=== PATIENT | male | born 1970 | race Caucasian/White ===

== ENCOUNTER 2018-09-29 05:44 | Inpatient (IN) ==
[2018-09-29] MEDS ORDERED: cefTRIAXone 1,000 MG in SYRINGE 1 EACH IV ONE (06:00)
[2018-09-29] MEDS ORDERED: DIAZEPAM 5 MG TABLET PO ONE (06:21)
[2018-09-29] MEDS ORDERED: FAMOTIDINE 20 MG TABLET PO ONE (06:21)
[2018-09-29] MEDS ORDERED: LACTATED RINGERS 1,000 ML IV SCH (06:30)
[2018-09-29] MEDS ORDERED: DIAZEPAM 5 MG TABLET ONE (06:31)
[2018-09-29] MEDS ORDERED: FAMOTIDINE 20 MG TABLET ONE (06:31)
[2018-09-29] MEDS ORDERED: cefTRIAXone 1,000 MG VIAL ONE (06:31)
[2018-09-29] MEDS ORDERED: ALVIMOPAN 12 MG CAPSULE ONE (06:31)
[2018-09-29] MEDS: ALVIMOPAN 12 MG CAPSULE PO SCH ×2 (06:33→21:04)
[2018-09-29] MEDS ORDERED: LIDOCAINE 2% TOP JELLY 20 ML VIAL INTRAURETH ONE (07:21)
[2018-09-29] MEDS ORDERED: ROPIVACAINE 0.5% 30 ML VIAL ONE (09:17)
[2018-09-29] MEDS ORDERED: HYDROmorphone PCA 30 MG/30 ML SYRINGE IV ONE (10:04)
[2018-09-29 10:13] LABS: Apearance,Urine CLEAR (Clear); Bilirubin,Urine Negative (Negative); Blood, Urine Large mg/dL (Negative); Glucose,Urine (UA) 50 mg/dL (Negative); Ketones,Urine Negative (Negative); Nitrite,Urine Negative (Negative); Protein,Urine Negative; Urine Color Yellow (Yellow); Urine Specific Gravity 1.017 (1.001-1.035); Urine Urobilinogen < 2.0 EU/DL (0.2-1.0)
[2018-09-29 10:21] LABS: RBC,Urine Occasional /HPF (0-4); Squamous Epithelial Cell,Urine Rare /HPF (0-10)
[2018-09-29 10:22] LABS: Mucus,Urine Trace /LPF (Occasional)
[2018-09-29] MEDS ORDERED: SEVOFLURANE 1 UNIT/15 MINUTE INH ONE (10:22)
[2018-09-29] MEDS ORDERED: MIDAZOLAM 2 MG/2 ML VIAL ONE (10:22)
[2018-09-29] MEDS ORDERED: PROPOFOL 200 MG/20 ML VIAL IV ONE (10:22)
[2018-09-29] MEDS ORDERED: ePHEDrine 50 MG/ML AMP ONE (10:23)
[2018-09-29] MEDS ORDERED: fentaNYL 100 MCG/2 ML VIAL ONE (10:23)
[2018-09-29] MEDS ORDERED: NALOXONE 0.4 MG/ML VIAL IV PRN (10:23)
[2018-09-29] MEDS ORDERED: DEXAMETHASONE 4 MG/1 ML VIAL ONE (10:23)
[2018-09-29] MEDS ORDERED: ONDANSETRON 4 MG/2 ML VIAL ONE (10:23)
[2018-09-29] MEDS ORDERED: GLYCOPYRROLATE 0.4 MG/2 ML VIAL ONE (10:24)
[2018-09-29] MEDS ORDERED: PHENYLEPHRINE 1 MG/10 ML SYRINGE IV ONE (10:24)
[2018-09-29] MEDS ORDERED: ROCURONIUM 100 MG/10 ML VIAL IV ONE (10:24)
[2018-09-29] MEDS ORDERED: NEOSTIGMINE 10 MG/10 ML VIAL ONE (10:24)
[2018-09-29] MEDS ORDERED: SUCCINYLCHOLINE 200 MG/10 ML VIAL ONE (10:24)
[2018-09-29] MEDS ORDERED: ONDANSETRON 4 MG/2 ML VIAL IV PRN (10:24)
[2018-09-29] MEDS ORDERED: LACTATED RINGERS 2,000 ML IV ONE (10:24)
[2018-09-29] MEDS ORDERED: HYDROmorphone PCA 30 MG/30 ML SYRINGE IV SCH (10:30)
[2018-09-29] MEDS: HYDROmorphone 2 MG/1 ML VIAL IV PRN ×2 (10:46→10:48)
[2018-09-29] MEDS: SODIUM CHLORIDE 0.9% 1,000 ML IV SCH ×2 (14:33→21:05)
[2018-09-29] MEDS: INSULIN LISPRO 100 UNIT/ML SUBCUT SCH ×2 (16:51→21:04)
[2018-09-29] MEDS: metFORMIN 500 MG TABLET PO SCH (16:52)
[2018-09-29] MEDS: GEMFIBROZIL 600 MG TABLET PO SCH (21:04)
[2018-09-30 04:48] LABS: Basophils % 0.3 % (0.0-0.8); Hematocrit 35.6 VOL% (42.0-52.0); Hemoglobin 10.6 GM/DL (14.0-18.0); Immature Granulocytes % 0.7 %; Lymphocytes # 1.4 10*3/uL (1.4-4.0); Lymphocytes % 9.9 % (21.2-54.2); Mean Corpuscular HGB Conc 29.8 GM/DL (32-36); Mean Corpuscular Volume 94.2 FL (87-102); Mean Platelet Volume 10.8 FL (9.6-12.0); Monocytes % 11.9 % (1.7-12.7); Neutrophils % 77.2 % (38.7-73.9); Platelet Count 276 T/CUMM (130-400); Red Blood Count 3.78 MC/CUMM (3.8-5.5); Red Cell Distribution Width 13.5 % (9.3-17.3); White Blood Count 14.2 T/CUMM (4-12)
[2018-09-30 04:58] LABS: Calcium 8.2 MG/DL (8.5-10.1); Osmolality,Calculated 283.5 MOS/KG (273-304)
[2018-09-30] MEDS: LEVOTHYROXINE 200 MCG TABLET PO SCH (06:26)
[2018-09-30] MEDS: SODIUM CHLORIDE 0.9% 1,000 ML IV SCH (06:28)
[2018-09-30 06:58] LABS: Band Neutrophils 1 % (0-10); Lymphocytes 15 % (20-55); Segmented Neutrophils 79 % (50-85); Total Cells Counted 100
[2018-09-30 06:59] LABS: Hypochromasia 1+; Microcytosis 1+; Platelet Estimate Normal
[2018-09-30] MEDS ORDERED: oxyCODONE/ACETAMINOPHEN 5-325 MG TABLET PO PRN (08:13)
[2018-09-30] MEDS: metFORMIN 500 MG TABLET PO SCH ×2 (09:17→16:36)
[2018-09-30] MEDS: ALVIMOPAN 12 MG CAPSULE PO SCH ×4 (09:17→22:16)
[2018-09-30] MEDS: PARoxetine 20 MG TABLET PO SCH (09:17)
[2018-09-30] MEDS: LISINOPRIL 20 MG TABLET PO SCH (09:17)
[2018-09-30] MEDS: GEMFIBROZIL 600 MG TABLET PO SCH ×2 (09:17→22:16)
[2018-09-30] MEDS: oxyCODONE/ACETAMINOPHEN 5-325 MG TABLET PO PRN ×2 (09:18→14:20)
[2018-09-30] MEDS: INSULIN LISPRO 100 UNIT/ML SUBCUT SCH ×4 (09:19→22:16)
[2018-09-30] MEDS ORDERED: MAGNESIUM HYDROXIDE SUSP 30 ML UDCUP PO PRN (18:26)
[2018-09-30] MEDS ORDERED: DEXTROSE 50% 25 GM/50 ML VIAL IV PRN (19:00)
[2018-09-30] MEDS ORDERED: GLUCAGON 1 MG VIAL IM PRN (19:00)
[2018-10-01] MEDS: oxyCODONE/ACETAMINOPHEN 5-325 MG TABLET PO PRN ×2 (00:47→08:46)
[2018-10-01] MEDS: LEVOTHYROXINE 200 MCG TABLET PO SCH (06:37)
[2018-10-01] MEDS: INSULIN LISPRO 100 UNIT/ML SUBCUT SCH ×3 (08:44→17:11)
[2018-10-01] MEDS: GEMFIBROZIL 600 MG TABLET PO SCH ×2 (08:45→21:35)
[2018-10-01] MEDS: LISINOPRIL 20 MG TABLET PO SCH (08:45)
[2018-10-01] MEDS: metFORMIN 500 MG TABLET PO SCH ×2 (08:45→17:11)
[2018-10-01] MEDS: ALVIMOPAN 12 MG CAPSULE PO SCH ×3 (08:45→21:35)
[2018-10-01] MEDS: PARoxetine 20 MG TABLET PO SCH (08:45)
[2018-10-01] MEDS: ONDANSETRON 4 MG/2 ML VIAL IV PRN ×2 (17:12→21:35)
[2018-10-01] MEDS ORDERED: BISACODYL 10 MG SUPP RECTAL PRN (19:24)
[2018-10-02] MEDS: INSULIN LISPRO 100 UNIT/ML SUBCUT SCH ×3 (02:21→15:03)
[2018-10-02] MEDS: LEVOTHYROXINE 200 MCG TABLET PO SCH (06:30)
[2018-10-02] MEDS: GEMFIBROZIL 600 MG TABLET PO SCH (08:35)
[2018-10-02] MEDS: metFORMIN 500 MG TABLET PO SCH (08:35)
[2018-10-02] MEDS: LISINOPRIL 20 MG TABLET PO SCH (08:35)
[2018-10-02] MEDS: PARoxetine 20 MG TABLET PO SCH (08:38)
[2018-10-02] MEDS: ALVIMOPAN 12 MG CAPSULE PO SCH (11:24)
[2018-10-02 11:28] VITALS: BP 135/90
[2018-10-02] MEDS: ONDANSETRON 4 MG/2 ML VIAL IV PRN (11:55)
== END 2018-10-02 13:18 | disposition home or self-care (01) | DRG 657 ==
LOC: N.SDSINP 05:44 → N.5E 10:43
PROVIDERS: ADMIT Urology; ATTEND Urology
PROC: PARNEPH (ICD-10-PCS; 2018-09-29 07:00)

== ENCOUNTER 2018-10-16 16:02 | Inpatient (IN) ==
[2018-10-16] MEDS ORDERED: MORPHINE 4 MG/1 ML VIAL IV STA (16:45)
[2018-10-16] MEDS ORDERED: ONDANSETRON 4 MG/2 ML VIAL IV STA (16:45)
[2018-10-16] MEDS ORDERED: SODIUM CHLORIDE 0.9% 1,000 ML IV STA ×2 (16:45→17:37)
[2018-10-16 17:25] LABS: Basophils # 0.1 10*3/uL (0.0-0.2); Basophils % 0.5 % (0.0-0.8); Hematocrit 46.1 VOL% (42.0-52.0); Hemoglobin 14.3 GM/DL (14.0-18.0); Immature Granulocytes % 0.7 %; Immature Granulocytes Absolute 0.18 #; Lymphocytes # 1.9 10*3/uL (1.4-4.0); Lymphocytes % 7.5 % (21.2-54.2); Mean Corpuscular Volume 89.9 FL (87-102); Mean Platelet Volume 10.8 FL (9.6-12.0); Monocytes % 4.5 % (1.7-12.7); Neutrophils % 86.8 % (38.7-73.9); Platelet Count 702 T/CUMM (130-400); Red Blood Count 5.13 MC/CUMM (3.8-5.5); Red Cell Distribution Width 13.2 % (9.3-17.3); White Blood Count 24.6 T/CUMM (4-12)
[2018-10-16 17:26] LABS: Albumin 3.6 G/DL (3.4-5.0); Bilirubin,Total 0.6 MG/DL (0.2-1.0); Calcium 10.2 MG/DL (8.5-10.1); Osmolality,Calculated 281.7 MOS/KG (273-304); Total Protein 10.1 G/DL (6.4-8.3)
[2018-10-16] MEDS ORDERED: PIPERACILLIN/TAZOBACTAM 3,375 MG in SODIUM CHLORIDE 0.9% 100 ML IV STA (17:39)
[2018-10-16] MEDS ORDERED: PANTOPRAZOLE 40 MG VIAL IV SCH (18:00)
[2018-10-16 18:18] LABS: Lymphocytes 9 % (20-55); Segmented Neutrophils 85 % (50-85); Total Cells Counted 100
[2018-10-16 18:19] LABS: Hypochromasia Slight
[2018-10-16 18:20] LABS: Giant Platelets Few; Platelet Estimate Increased
[2018-10-16] MEDS ORDERED: ACETAMINOPHEN 325 MG TABLET PO PRN (18:37)
[2018-10-16] MEDS: MORPHINE 4 MG/1 ML VIAL IV PRN (21:01)
[2018-10-16] MEDS: ONDANSETRON 4 MG/2 ML VIAL IV PRN (21:20)
[2018-10-16] MEDS: DEXTROSE 5% NACL 0.45% 1,000 ML IV SCH (21:20)
[2018-10-16] MEDS ORDERED: ENOXAPARIN 40 MG/0.4 ML SYRINGE SUBCUT SCH (22:00)
[2018-10-17] MEDS: PIPERACILLIN/TAZOBACTAM 3,375 MG in SODIUM CHLORIDE 0.9% 100 ML IV SCH ×3 (02:04→17:40)
[2018-10-17 03:05] LABS: Basophils # 0.1 10*3/uL (0.0-0.2); Basophils % 0.5 % (0.0-0.8); Eosinophils % 0.1 % (0.00-10.9); Hematocrit 39.8 VOL% (42.0-52.0); Hemoglobin 12.4 GM/DL (14.0-18.0); Immature Granulocytes % 0.5 %; Immature Granulocytes Absolute 0.08 #; Lymphocytes % 5.4 % (21.2-54.2); Mean Corpuscular HGB Conc 31.2 GM/DL (32-36); Mean Corpuscular Volume 89.8 FL (87-102); Mean Platelet Volume 10.8 FL (9.6-12.0); Monocytes % 7.5 % (1.7-12.7); Platelet Count 541 T/CUMM (130-400); Red Blood Count 4.43 MC/CUMM (3.8-5.5); Red Cell Distribution Width 13.4 % (9.3-17.3); White Blood Count 17.8 T/CUMM (4-12)
[2018-10-17 03:34] LABS: Calcium 8.7 MG/DL (8.5-10.1)
[2018-10-17] MEDS ORDERED: ceFAZolin 2,000 MG in PREMIX 1 EACH IV ONE (06:00)
[2018-10-17] MEDS ORDERED: BUPIVACAINE 0.25% /EPI 10 ML VIAL ONE (06:28)
[2018-10-17] MEDS ORDERED: LIDOCAINE 1%/EPI INJ 20 ML VIAL ONE (06:29)
[2018-10-17] MEDS ORDERED: TISSUE ADHESIVE 1 EACH APPLICATOR TOP ONE (06:29)
[2018-10-17] MEDS: DEXTROSE 5% NACL 0.45% 1,000 ML IV SCH ×3 (07:10→23:00)
[2018-10-17 07:48] LABS: Apearance,Urine Slightly Hazy (Clear); Bilirubin,Urine Negative (Negative); Blood, Urine Large mg/dL (Negative); Glucose,Urine (UA) 150 mg/dL (Negative); Ketones,Urine Negative (Negative); Mucus,Urine Occasional /LPF (Occasional); Nitrite,Urine Negative (Negative); Protein,Urine 100 MG/DL; RBC,Urine 76 /HPF (0-4); Squamous Epithelial Cell,Urine Occasional /HPF (0-10); Urine Color Yellow (Yellow); Urine Specific Gravity > 1.060 (1.001-1.035); Urine Urobilinogen < 2.0 EU/DL (0.2-1.0); WBC,Urine 8 /HPF (0-6)
[2018-10-17] MEDS: HEPARIN 5,000 UNIT/1 ML VIAL SUBCUT SCH ×2 (11:13→17:39)
[2018-10-18] MEDS: MORPHINE 4 MG/1 ML VIAL IV PRN ×2 (00:32→12:10)
[2018-10-18] MEDS: ONDANSETRON 4 MG/2 ML VIAL IV PRN (00:36)
[2018-10-18] MEDS: PIPERACILLIN/TAZOBACTAM 3,375 MG in SODIUM CHLORIDE 0.9% 100 ML IV SCH ×3 (03:14→17:31)
[2018-10-18] MEDS: HEPARIN 5,000 UNIT/1 ML VIAL SUBCUT SCH ×3 (03:16→17:31)
[2018-10-18 04:50] LABS: Basophils # 0.1 10*3/uL (0.0-0.2); Eosinophils # 0.3 10*3/uL (0.0-0.87); Eosinophils % 4.3 % (0.00-10.9); Hematocrit 36.1 VOL% (42.0-52.0); Hemoglobin 11.2 GM/DL (14.0-18.0); Immature Granulocytes % 0.3 %; Immature Granulocytes Absolute 0.02 #; Lymphocytes # 2.2 10*3/uL (1.4-4.0); Lymphocytes % 28.2 % (21.2-54.2); Mean Corpuscular Volume 90.3 FL (87-102); Mean Platelet Volume 10.7 FL (9.6-12.0); Neutrophils % 55.2 % (38.7-73.9); Platelet Count 363 T/CUMM (130-400); Red Cell Distribution Width 13.3 % (9.3-17.3); White Blood Count 7.8 T/CUMM (4-12)
[2018-10-18 05:05] LABS: Calcium 8.2 MG/DL (8.5-10.1); Osmolality,Calculated 289.4 MOS/KG (273-304)
[2018-10-18] MEDS: DEXTROSE 5% NACL 0.45% 1,000 ML IV SCH ×2 (07:53→14:57)
[2018-10-18] MEDS: FAMOTIDINE 20 MG/2 ML VIAL IV SCH ×2 (09:50→22:09)
[2018-10-19] MEDS: DEXTROSE 5% NACL 0.45% 1,000 ML IV SCH ×3 (01:37→21:45)
[2018-10-19] MEDS: PIPERACILLIN/TAZOBACTAM 3,375 MG in SODIUM CHLORIDE 0.9% 100 ML IV SCH ×2 (01:37→12:33)
[2018-10-19] MEDS: HEPARIN 5,000 UNIT/1 ML VIAL SUBCUT SCH ×3 (01:43→17:49)
[2018-10-19 04:43] LABS: Basophils # 0.1 10*3/uL (0.0-0.2); Eosinophils # 0.2 10*3/uL (0.0-0.87); Eosinophils % 2.4 % (0.00-10.9); Hematocrit 34.5 VOL% (42.0-52.0); Hemoglobin 10.8 GM/DL (14.0-18.0); Immature Granulocytes % 0.3 %; Immature Granulocytes Absolute 0.03 #; Lymphocytes # 1.6 10*3/uL (1.4-4.0); Lymphocytes % 17.4 % (21.2-54.2); Mean Corpuscular HGB Conc 31.3 GM/DL (32-36); Mean Corpuscular Volume 89.6 FL (87-102); Mean Platelet Volume 10.8 FL (9.6-12.0); Monocytes % 8.9 % (1.7-12.7); Platelet Count 328 T/CUMM (130-400); Red Blood Count 3.85 MC/CUMM (3.8-5.5)
[2018-10-19] MEDS ORDERED: ceFAZolin 2,000 MG in PREMIX 1 EACH IV ONE (05:00)
[2018-10-19 05:04] LABS: Calcium 8.4 MG/DL (8.5-10.1); Osmolality,Calculated 286.4 MOS/KG (273-304)
[2018-10-19] MEDS: FAMOTIDINE 20 MG/2 ML VIAL IV SCH ×2 (09:30→22:37)
[2018-10-19] MEDS ORDERED: PROPOFOL 200 MG/20 ML VIAL IV ONE (10:46)
[2018-10-19] MEDS ORDERED: MIDAZOLAM 2 MG/2 ML VIAL ONE (10:47)
[2018-10-19] MEDS ORDERED: ONDANSETRON 4 MG/2 ML VIAL ONE ×2 (10:47→10:57)
[2018-10-19] MEDS ORDERED: GLYCOPYRROLATE 0.4 MG/2 ML VIAL ONE (10:47)
[2018-10-19] MEDS ORDERED: fentaNYL 100 MCG/2 ML VIAL ONE ×2 (10:47)
[2018-10-19] MEDS ORDERED: SEVOFLURANE 1 UNIT/15 MINUTE INH ONE (10:47)
[2018-10-19] MEDS ORDERED: PHENYLEPHRINE 1 MG/10 ML SYRINGE IV ONE (10:47)
[2018-10-19] MEDS ORDERED: ROCURONIUM 100 MG/10 ML VIAL IV ONE (10:48)
[2018-10-19] MEDS ORDERED: LACTATED RINGERS 1,000 ML IV ONE (10:48)
[2018-10-19] MEDS ORDERED: NEOSTIGMINE 10 MG/10 ML VIAL ONE (10:48)
[2018-10-19] MEDS ORDERED: MEPERIDINE 25 MG/1 ML VIAL ONE (10:57)
[2018-10-19] MEDS ORDERED: MEPERIDINE 25 MG/1 ML VIAL IV PRN (11:03)
[2018-10-19] MEDS ORDERED: ONDANSETRON 4 MG/2 ML VIAL IV PRN (11:03)
[2018-10-19] MEDS: MORPHINE 4 MG/1 ML VIAL IV PRN (12:03)
[2018-10-19 12:26] LABS: Basophils # 0.1 10*3/uL (0.0-0.2); Basophils % 0.5 % (0.0-0.8); Hemoglobin 11.7 GM/DL (14.0-18.0); Immature Granulocytes % 0.4 %; Immature Granulocytes Absolute 0.06 #; Lymphocytes # 0.7 10*3/uL (1.4-4.0); Lymphocytes % 4.8 % (21.2-54.2); Mean Corpuscular HGB Conc 31.6 GM/DL (32-36); Mean Corpuscular Volume 88.3 FL (87-102); Mean Platelet Volume 10.3 FL (9.6-12.0); Monocytes % 4.8 % (1.7-12.7); Neutrophils % 89.5 % (38.7-73.9); Platelet Count 337 T/CUMM (130-400); Red Blood Count 4.19 MC/CUMM (3.8-5.5); Red Cell Distribution Width 12.8 % (9.3-17.3); White Blood Count 15.2 T/CUMM (4-12)
[2018-10-19 12:47] LABS: Calcium 8.1 MG/DL (8.5-10.1); Osmolality,Calculated 283.7 MOS/KG (273-304)
[2018-10-19 12:49] LABS: Hypochromasia 1+; Lymphocytes 5 % (20-55); Segmented Neutrophils 90 % (50-85); Total Cells Counted 100
[2018-10-19 12:50] LABS: Microcytosis Slight; Platelet Estimate Normal
[2018-10-19] MEDS ORDERED: HYDROmorphone 2 MG/1 ML VIAL IV ONE (14:11)
[2018-10-19] MEDS ORDERED: HYDROmorphone 2 MG/1 ML VIAL IV PRN (14:46)
[2018-10-19] MEDS: HYDROmorphone 2 MG/1 ML VIAL IV PRN (19:23)
[2018-10-20] MEDS: HYDROmorphone 2 MG/1 ML VIAL IV PRN ×4 (00:38→15:50)
[2018-10-20] MEDS: HEPARIN 5,000 UNIT/1 ML VIAL SUBCUT SCH ×3 (03:12→19:06)
[2018-10-20] MEDS: DEXTROSE 5% NACL 0.45% 1,000 ML IV SCH ×4 (04:45→20:02)
[2018-10-20 05:11] LABS: Basophils # 0.1 10*3/uL (0.0-0.2); Basophils % 0.6 % (0.0-0.8); Eosinophils # 0.5 10*3/uL (0.0-0.87); Eosinophils % 5.2 % (0.00-10.9); Hematocrit 35.8 VOL% (42.0-52.0); Hemoglobin 11.2 GM/DL (14.0-18.0); Immature Granulocytes % 0.3 %; Immature Granulocytes Absolute 0.03 #; Lymphocytes # 1.5 10*3/uL (1.4-4.0); Lymphocytes % 15.2 % (21.2-54.2); Mean Corpuscular HGB Conc 31.3 GM/DL (32-36); Mean Corpuscular Volume 88.8 FL (87-102); Mean Platelet Volume 10.5 FL (9.6-12.0); Monocytes % 7.5 % (1.7-12.7); Neutrophils % 71.2 % (38.7-73.9); Platelet Count 325 T/CUMM (130-400); Red Blood Count 4.03 MC/CUMM (3.8-5.5); Red Cell Distribution Width 12.8 % (9.3-17.3); White Blood Count 9.9 T/CUMM (4-12)
[2018-10-20 05:22] LABS: Calcium 8.1 MG/DL (8.5-10.1); Osmolality,Calculated 284.4 MOS/KG (273-304)
[2018-10-20] MEDS: LEVOTHYROXINE 200 MCG TABLET PO SCH (07:00)
[2018-10-20] MEDS: PARoxetine 20 MG TABLET PO SCH (10:10)
[2018-10-20] MEDS: FAMOTIDINE 20 MG/2 ML VIAL IV SCH ×2 (10:10→21:34)
[2018-10-21] MEDS: HEPARIN 5,000 UNIT/1 ML VIAL SUBCUT SCH ×3 (03:11→09:58)
[2018-10-21] MEDS: DEXTROSE 5% NACL 0.45% 1,000 ML IV SCH (04:02)
[2018-10-21 05:17] LABS: Basophils # 0.1 10*3/uL (0.0-0.2); Basophils % 0.6 % (0.0-0.8); Eosinophils # 1.1 10*3/uL (0.0-0.87); Eosinophils % 13.6 % (0.00-10.9); Hematocrit 35.5 VOL% (42.0-52.0); Hemoglobin 10.8 GM/DL (14.0-18.0); Immature Granulocytes % 0.5 %; Immature Granulocytes Absolute 0.04 #; Lymphocytes # 1.8 10*3/uL (1.4-4.0); Lymphocytes % 22.1 % (21.2-54.2); Mean Corpuscular HGB Conc 30.4 GM/DL (32-36); Mean Corpuscular Volume 90.6 FL (87-102); Mean Platelet Volume 10.5 FL (9.6-12.0); Monocytes % 8.8 % (1.7-12.7); Neutrophils % 54.4 % (38.7-73.9); Platelet Count 302 T/CUMM (130-400); Red Blood Count 3.92 MC/CUMM (3.8-5.5); Red Cell Distribution Width 12.8 % (9.3-17.3)
[2018-10-21 05:37] LABS: Eosinophils 13 % (0-10); Hypochromasia 1+; Lymphocytes 23 % (20-55); Microcytosis Slight; Platelet Estimate Adequate; Segmented Neutrophils 58 % (50-85); Total Cells Counted 100
[2018-10-21] MEDS: LEVOTHYROXINE 200 MCG TABLET PO SCH (05:37)
[2018-10-21 05:41] LABS: Calcium 8.3 MG/DL (8.5-10.1); Osmolality,Calculated 281.4 MOS/KG (273-304)
[2018-10-21] MEDS ORDERED: POTASSIUM CHLORIDE 20 MEQ TABLET PO ONE (07:47)
[2018-10-21 08:39] VITALS: BP 129/82
[2018-10-21] MEDS: PARoxetine 20 MG TABLET PO SCH (09:22)
[2018-10-21] MEDS: FAMOTIDINE 20 MG/2 ML VIAL IV SCH ×2 (09:23→10:00)
== END 2018-10-21 12:18 | disposition home or self-care (01) | DRG 336 ==
LOC: N.ED 16:02 → N.EDINP 17:53 → N.5E 18:30
PROVIDERS: ADMIT Surgery; ATTEND Surgery

== ENCOUNTER 2020-06-13 14:19 | Inpatient (IN) ==
[2020-06-13 15:11] LABS: Basophils # 0.1 10*3/uL (0.0-0.2); Basophils % 0.6 % (0.0-0.8); Eosinophils # 0.3 10*3/uL (0.0-0.87); Eosinophils % 2.8 % (0.00-10.9); Hemoglobin 12.1 GM/DL (14.0-18.0); Immature Granulocytes % 0.3 %; Immature Granulocytes Absolute 0.03 #; Lymphocytes # 1.7 10*3/uL (1.4-4.0); Lymphocytes % 16.6 % (21.2-54.2); Mean Corpuscular HGB Conc 30.3 GM/DL (32-36); Mean Corpuscular Volume 89.5 FL (87-102); Mean Platelet Volume 9.7 FL (9.6-12.0); Monocytes % 7.4 % (1.7-12.7); Neutrophils % 72.3 % (38.7-73.9); Platelet Count 325 T/CUMM (130-400); Red Blood Count 4.47 MC/CUMM (3.8-5.5); Red Cell Distribution Width 14.9 % (9.3-17.3)
[2020-06-13 15:29] LABS: Calcium 8.8 MG/DL (8.5-10.1); Osmolality,Calculated 273.8 MOS/KG (273-304); Potassium 3.7 MMOL/L (3.5-5.1)
[2020-06-13] MEDS ORDERED: LACTATED RINGERS 1,000 ML IV SCH (15:30)
[2020-06-13] MEDS ORDERED: ceFAZolin 2,000 MG in PREMIX 1 EACH IV ONE (15:30)
[2020-06-13] MEDS ORDERED: MIDAZOLAM 2 MG/2 ML VIAL ONE (15:52)
[2020-06-13] MEDS ORDERED: fentaNYL 250 MCG/5 ML VIAL ONE (15:52)
[2020-06-13] MEDS ORDERED: LIDOCAINE 2% 5 ML VIAL ONE (16:14)
[2020-06-13] MEDS ORDERED: ONDANSETRON 4 MG/2 ML VIAL ONE ×2 (16:14→18:02)
[2020-06-13] MEDS ORDERED: ROCURONIUM 50 MG/5 ML VIAL IV ONE ×2 (16:14→16:37)
[2020-06-13] MEDS ORDERED: propofoL 200 MG/20 ML VIAL IV ONE (16:14)
[2020-06-13] MEDS ORDERED: SUCCINYLCHOLINE 200 MG/10 ML VIAL ONE (16:15)
[2020-06-13] MEDS ORDERED: DEXAMETHASONE 4 MG/1 ML VIAL ONE (16:15)
[2020-06-13] MEDS ORDERED: PHENYLEPHRINE 1 MG/10 ML SYRINGE IV ONE (16:15)
[2020-06-13] MEDS ORDERED: NEOSTIGMINE 10 MG/10 ML VIAL ONE ×5 (17:27)
[2020-06-13] MEDS ORDERED: GLYCOPYRROLATE 0.4 MG/2 ML VIAL ONE ×2 (17:27)
[2020-06-13] MEDS ORDERED: ONDANSETRON 4 MG/2 ML VIAL IV PRN ×2 (18:00→19:31)
[2020-06-13] MEDS ORDERED: HYDROmorphone 2 MG/1 ML VIAL ONE (18:02)
[2020-06-13] MEDS: HYDROmorphone 2 MG/1 ML VIAL IV PRN ×4 (18:07→18:35)
[2020-06-13] MEDS ORDERED: PROMETHAZINE 25 MG/1 ML VIAL IM PRN (19:31)
[2020-06-13 19:51] LABS: Basophils % 0.2 % (0.0-0.8); Eosinophils % 0.1 % (0.00-10.9); Hematocrit 40.6 VOL% (42.0-52.0); Hemoglobin 12.2 GM/DL (14.0-18.0); Immature Granulocytes % 0.7 %; Immature Granulocytes Absolute 0.12 #; Lymphocytes # 0.6 10*3/uL (1.4-4.0); Lymphocytes % 3.4 % (21.2-54.2); Mean Corpuscular Volume 90.6 FL (87-102); Mean Platelet Volume 9.7 FL (9.6-12.0); Monocytes % 2.1 % (1.7-12.7); Neutrophils % 93.5 % (38.7-73.9); Platelet Count 318 T/CUMM (130-400); Red Blood Count 4.48 MC/CUMM (3.8-5.5)
[2020-06-13 20:10] LABS: Calcium 8.5 MG/DL (8.5-10.1); Osmolality,Calculated 281.7 MOS/KG (273-304); Potassium 4.2 MMOL/L (3.5-5.1)
[2020-06-13 20:12] LABS: Lymphocytes 3 % (20-55); Segmented Neutrophils 95 % (50-85); Total Cells Counted 100
[2020-06-13] MEDS: KETOROLAC 15 MG/1 ML VIAL IV SCH (20:26)
[2020-06-13] MEDS: LACTATED RINGERS 1,000 ML IV SCH (21:27)
[2020-06-14] MEDS: KETOROLAC 15 MG/1 ML VIAL IV SCH ×2 (02:09→17:51)
[2020-06-14] MEDS: LACTATED RINGERS 1,000 ML IV SCH ×3 (05:30→20:16)
[2020-06-14] MEDS: HYDROmorphone 2 MG/1 ML VIAL IV PRN ×4 (05:31→20:15)
[2020-06-14] MEDS: LEVOTHYROXINE 112 MCG TABLET PO SCH (06:22)
[2020-06-14 07:03] LABS: Basophils % 0.2 % (0.0-0.8); Hematocrit 36.5 VOL% (42.0-52.0); Hemoglobin 11.2 GM/DL (14.0-18.0); Immature Granulocytes % 0.5 %; Immature Granulocytes Absolute 0.08 #; Lymphocytes # 0.9 10*3/uL (1.4-4.0); Lymphocytes % 5.7 % (21.2-54.2); Mean Corpuscular HGB Conc 30.7 GM/DL (32-36); Mean Corpuscular Volume 88.4 FL (87-102); Mean Platelet Volume 10.3 FL (9.6-12.0); Monocytes % 5.9 % (1.7-12.7); Neutrophils % 87.7 % (38.7-73.9); Platelet Count 302 T/CUMM (130-400); Red Blood Count 4.13 MC/CUMM (3.8-5.5); Red Cell Distribution Width 14.6 % (9.3-17.3); White Blood Count 15.2 T/CUMM (4-12)
[2020-06-14 07:41] LABS: Calcium 8.5 MG/DL (8.5-10.1); Osmolality,Calculated 281.4 MOS/KG (273-304); Potassium 4.4 MMOL/L (3.5-5.1)
[2020-06-14] MEDS: PANTOPRAZOLE 40 MG VIAL IV SCH (09:06)
[2020-06-14] MEDS: ENOXAPARIN 40 MG/0.4 ML SYRINGE SUBCUT SCH (13:06)
[2020-06-15] MEDS: HYDROmorphone 2 MG/1 ML VIAL IV PRN ×2 (03:44→11:36)
[2020-06-15] MEDS: LACTATED RINGERS 1,000 ML IV SCH ×2 (03:45→13:30)
[2020-06-15] MEDS: LEVOTHYROXINE 112 MCG TABLET PO SCH (06:22)
[2020-06-15 08:40] LABS: Basophils # 0.1 10*3/uL (0.0-0.2); Basophils % 0.6 % (0.0-0.8); Eosinophils # 0.5 10*3/uL (0.0-0.87); Eosinophils % 4.7 % (0.00-10.9); Hematocrit 34.6 VOL% (42.0-52.0); Hemoglobin 10.9 GM/DL (14.0-18.0); Immature Granulocytes % 0.6 %; Immature Granulocytes Absolute 0.06 #; Lymphocytes # 1.2 10*3/uL (1.4-4.0); Lymphocytes % 11.9 % (21.2-54.2); Mean Corpuscular HGB Conc 31.5 GM/DL (32-36); Mean Corpuscular Volume 88.5 FL (87-102); Mean Platelet Volume 10.5 FL (9.6-12.0); Monocytes % 9.1 % (1.7-12.7); Neutrophils % 73.1 % (38.7-73.9); Platelet Count 258 T/CUMM (130-400); Red Blood Count 3.91 MC/CUMM (3.8-5.5); Red Cell Distribution Width 14.7 % (9.3-17.3); White Blood Count 10.1 T/CUMM (4-12)
[2020-06-15 08:58] LABS: Calcium 8.4 MG/DL (8.5-10.1); Osmolality,Calculated 281.4 MOS/KG (273-304); Potassium 3.8 MMOL/L (3.5-5.1)
[2020-06-15] MEDS: PANTOPRAZOLE 40 MG VIAL IV SCH (09:28)
[2020-06-15] MEDS: ENOXAPARIN 40 MG/0.4 ML SYRINGE SUBCUT SCH (11:41)
[2020-06-16] MEDS: LEVOTHYROXINE 112 MCG TABLET PO SCH (06:05)
[2020-06-16] MEDS: PANTOPRAZOLE 40 MG VIAL IV SCH (09:16)
[2020-06-16] MEDS: LACTATED RINGERS 1,000 ML IV SCH (09:25)
[2020-06-16] MEDS: ENOXAPARIN 40 MG/0.4 ML SYRINGE SUBCUT SCH (11:24)
[2020-06-17] MEDS: LEVOTHYROXINE 112 MCG TABLET PO SCH (06:10)
[2020-06-17] MEDS: LACTATED RINGERS 1,000 ML IV SCH ×3 (07:39→22:39)
[2020-06-17] MEDS: PANTOPRAZOLE 40 MG VIAL IV SCH (09:17)
[2020-06-17] MEDS: HYDROmorphone 2 MG/1 ML VIAL IV PRN ×2 (11:39→22:39)
[2020-06-17] MEDS: ENOXAPARIN 40 MG/0.4 ML SYRINGE SUBCUT SCH (11:40)
[2020-06-18] MEDS: HYDROmorphone 2 MG/1 ML VIAL IV PRN (04:30)
[2020-06-18] MEDS: LACTATED RINGERS 1,000 ML IV SCH (06:23)
[2020-06-18] MEDS: LEVOTHYROXINE 112 MCG TABLET PO SCH (06:24)
[2020-06-18 07:58] VITALS: BP 146/87
[2020-06-18] MEDS: PANTOPRAZOLE 40 MG VIAL IV SCH (08:09)
== END 2020-06-18 11:00 | disposition home health service (06) | DRG 330 ==
LOC: N.SDSINP 14:19 → N.OR 14:19 → N.SDSINP 14:23 → N.3E 19:01
PROVIDERS: ADMIT Surgery; ATTEND Surgery